=== PATIENT | female | born 1980 | race Caucasian/White ===

== ENCOUNTER → 2019-11-24 16:27 | Outpatient (CLI) | payer OTHER, SELFPAY ==
[2019-11-25 14:32] LABS: Strep Grp B PCR NEG for Grp B Strep
== END ==
PROVIDERS: Visit Provider Obstetrics & Gynecology
DX: Z34.03 Encounter for supervision of normal first pregnancy, third trimester (principal); Z3A.35 35 weeks gestation of pregnancy
CPT/HCPCS: 87653

== ENCOUNTER 2019-12-20 15:38 | Inpatient (IN) | payer OTHER, SELFPAY ==
--- NOTE | 2019-12-20 | PATH_ITS ---
[facility] Accession Number: [id number] . 01 Material submitted: . fallopian tube - BILATERAL FALLOPIAN TUBES . 01 Clinical history: . EVAL OF LABOR . 02 Diagnosis: Bilateral Fallopian Tubes, Tubal Ligation: Segments of bilateral fallopian tubes. No evidence of neoplasm. [facility] 12/24/20191714 Local . 02 Electronically signed: . Jesus Vanessa MD, PhD, Pathologist NPI- [id number] . 01 Gross description: . The specimen is received in formalin, labeled bilateral fallopian tubes and consists of two segments of fallopian tubes, measuring 0.5 cm in length x 0.5 cm in diameter and 1.2 cm in length x 0.5 cm in diameter. Fimbriae are not present. The serosa is sy-pink and smooth. Sectioning reveals a sy mucosa and a pinpoint stellate lumen, measuring up to 0.2 cm in diameter. The specimen is entirely submitted. . A1 - Smaller fallopian tube, bisected. A2 - Larger fallopian tube, quadrisected. (EA:[id number]) /[facility] 12/24/20191713 Local . 02 Microscopic: . A complete cross-section of fallopian tube is seen in each structure submitted. . 02 Pathologist provided ICD-10: Z30.2 . 02 CPT . 805620 Performed at: 01 [facility] [address] [id number] MD Jose Velasco MD Phone: [phone] Performed at: 02 [facility] [address] [place], [place] [id number] MD Irlanda Huffman MD Phone: [phone]
--- NOTE | 2019-12-20 17:25 | P.HPOB_ITS ---
OB HPI Date/Time Date of admission: 12/20/19 Date Patient Seen: 12/20/19 Time Patient Seen: 17:00 History of Present Condition Chief complaint: eval of labor : 7 Para: 3 Estimated Date of Delivery: 12/28/19 Estimated Gestational Age (weeks): 38 Narrative: Su Muro is a 39 year old @38+6 with a history of 3 prior CS, presenting in early labor. The patient reports intermittent contractions for several days, q15 this AM, and now as often as q4-5. Patient denies other abdominal pain, decreased movement, vaginal bleeding, loss of fluid, or any other complaints obstetrical or otherwise. Her was complicated by late transfer of care at 28 weeks gestation, but she denies diabetes, HTN, or any other complications. She is rh negative and recieved rhogam at 28 weeks. She has a history of three prior term CS, the first for failed induction of labor and the rest as scheduled repeat CS. She denies any other contributory emergency care attendant, medical, surgical, or family history, allergies, or medications. Indications Operative indications ( section): previous uterine surgery History of Present care: good care Obstetrical complications: none Preadmission Labs Blood type: 0 (-) negative -: Antibody screen: negative, GBS status: negative, HBsAG: negative, HIV: negative, HSV 1: negative, HSV 2: negative and RPR/VDLR: negative -: Chlamydia screen: not detected and Gonorrhea screen: not detected -: Rubella: immune and Varicella: immune Cell-free DNA: negative [facility] Medical History (Updated 12/08/19 @ 15:06 by Talisha Doherty MD) AMA (advanced maternal age) multigravida 35+ (Acute) Ectopic (Acute ~06/2016) GDM (gestational diabetes mellitus) (Acute ~07/2008) History of recurrent miscarriages (Acute) Surgical History (Updated 12/08/19 @ 15:06 by Talisha Doherty MD) History of bunionectomy of right great toe (Acute ~2006) History of primary section (Acute ~07/2008) S/P foot surgery, right (Acute ~2011) S/P repeat low transverse (Acute ~02/2011) Status post repeat low transverse section (Acute ~08/2013) [place] teeth removed (Acute ~2018) Family History (Updated 11/07/19 @ 12:29 by Allison Wang RN) Father No problems noted. Mother Breast cancer Grandfather Congestive heart failure Grandmother Congestive heart failure Grandfather Surgical complication Grandmother No known health problems Social History marital status: number of children: 3 household members: spouse and children occupational status: unemployed current occupational exposures/hazards: No special manjit needs: No Smoking Status: Never smoker second hand exposure: No alcohol intake: former (pre- : socially) substance use type: does not use Meds Home Medications and Allergies Home Medications Medication Instructions Recorded Confirmed Type calcium carbonate 200 mg calcium 200 mg PO BID 11/07/19 12/20/19 History (500 mg) chewable tablet prenat.vits,mor,vbh-coqm-qgllt 1 tab PO DAILY 11/07/19 12/20/19 History Double Electric Breast Pump #1 ea 12/08/19 12/17/19 Rx Allergies Allergy/AdvReac Type Severity Reaction Status Date / Time adhesive tape Allergy Intermediate HIVES : Verified 12/17/19 16:35 Paper Tape is better Objective Labs Result Diagrams: 12/20/19 17:00
[2019-12-20 17:26] LABS: Add Manual Diff / Slide Review NO; Basophils Absolute Auto 0 /uL (0-100); Basophils Percent Auto 0.3 % (0-2); Eosinophils Absolute Auto 200 /uL (0-450); Eosinophils Percent Auto 1.5 % (2-4); Hematocrit 32.5 % (36-46); Hemoglobin 10.8 g/dL (12.0-16.0); Lymphocytes Absolute Auto 2400 /uL (1100-4500); Lymphocytes Percent Auto 18.1 % (25-40); Mean Corpuscular HGB Conc 33.3 % (30-36); Mean Corpuscular Hemoglobin 29.3 PG (26-34); Mean Corpuscular Volume 88.1 fL (80-100); Monocytes Absolute Auto 1100 /uL (0-900); Monocytes Percent Auto 8.5 % (3-14); Neutrophils Absolute Auto 9300 /uL (1500-7000); Neutrophils Percent Auto 71.6 % (50-75); Platelet Count 242 X10^3/uL (150-400); Red Blood Cell Count 3.69 X10^6/uL (4.0-5.2); Red Cell Distribution Width 15.6 % (11.6-14.8)
[2019-12-20 17:39] LABS: COVID19 -Nasal RAPID Negative (Negative)
[2019-12-20] MEDS: CEFAZOLIN 2 GM/100 ML FROZ.PIGGY IV (17:59)
[2019-12-20] MEDS: CITRIC ACID/SODIUM CITRATE 15 ML SOLUTION 30 ML PO (18:00)
[2019-12-20] MEDS: ACETAMINOPHEN IV 1,000 MG/100 ML VIAL 400 MG IV (18:14)
--- NOTE | 2019-12-20 18:16 | SUR.OPER ---
Supine on Padded OR bed, head on pillow, safety belt at thigh, arms secured on padded arm boards at <90 degrees abduction. Bump under right buttock. Legs uncrossed with pillow under knees, gel pad to heels, tape over blanket to lower legs.
--- NOTE | 2019-12-20 18:44 | SUR.OPER ---
FHT prior to incision 124, viable baby girl born at 1829, at 8/9. Cord blood and placenta sent to OB with OB nurse.
[2019-12-20 19:24] VITALS: BP 104/66; PULSE 74; RESP 16; TEMP 36.8; O2SAT 99
[2019-12-20 19:29] VITALS: BP 112/62; PULSE 68; RESP 16; O2SAT 99
--- NOTE | 2019-12-20 19:31 | PM.OP.1 ---
Operative Date/Time/Diagnoses Date of procedure: 12/20/19 Time of procedure: 19:31 Pre-op diagnosis: early labor, history of 3 sections Post-op diagnosis: same Procedure & Clinicians Procedure: repeat section and bilateral tubal ligation Same procedure as scheduled: Yes Indications: early labor Surgeon: Yin Dennis Scenic Artist: Karishma Smith Anesthesia Type: Spinal Operative Notes Findings: normal uterus, tubes, and ovaries. baby girl in breech presentation, weight 7#10, apgars 8+9 Closure Type: primary Specimen(s): other (portions of bilateral fallopian tubes) Applied: catheter Estimated Blood Loss (mL): 500 Procedure in detail: EBL: 500ccs Fluids: 1400ccs LR UOP: 100ccs clear urine Findings: Female infant in cephalic presentation, Apgars 8 and 9, weight 7 lb 10 oz, normal uterus, tubes, ovaries. Procedures: The patient was taken to the operating room where spinal anesthesia was placed and found to be adequate. She was prepped and draped in the normal sterile fashion in the dorsal supine position with a leftward tilt. A Pfannenstiel skin incision was made with a scalpel and carried through to the underlying layer of fascia. The fascia was incised in the midline and the incision extended laterally with Edge scissors. The superior aspect of this incision was grasped with Radha clamps, elevated. and the underlying rectus muscles dissected off bluntly with no scar tissue. Attention was then turned to the inferior aspect of this incision which, in a similar fashion, was grasped, tented up with the Radha clamps, and the rectus muscles dissected off with curved Edge scissors. The rectus muscles were then in the midline using a Yin clamp and bluntly, and the peritoneum identified, tented up, and entered sharply with Metzenbaum scissors. The peritoneal incision was extended superiorly and inferiorly with good visualization of the bladder. A significant amount of scar tissue was between the rectus muscles, the peritoneum, and the bladder, but below the level necessary to complete a hysterotomy. This scar tissue was left in place due to significant involvement of the bladder. The bladder blade was inserted and the vesico uterine peritoneum identified, grasped with pickups, and entered sharply with the Metzenbaum scissors. This incision was extended laterally, and the bladder flap created digitally. The bladder blade was then reinserted and the lower uterine segment incised in transverse fashion with the scalpel. The uterine incision was bluntly extended laterally with rupture of membranes. The bladder blade was removed, and the 's feet were delivered through the hysterotomy. The 's body was delivered to the level of the scapula, and each arm and then the vertex were delivered with the usual maneuvers. One body cord and 1 loose nuchal cord were reduced during this process. The cord was clamped and cut. The nose and mouth were suctioned as needed with a bulb syringe, and the was handed off to awaiting pediatricians. The placenta was then removed manually, and the uterus was exteriorized and cleared of all clots and debris. The uterine incision was repaired with 1-0 chromic in a running, locked fashion and a 2nd layer of the same suture was used to obtain excellent hemostasis. Attention was then turned to the fallopian tubes. The left fallopian tube was elevated at the isthmus with a Danial, and a free tie of plain gut was used to tie off an approximately 1 cm knuckle of fallopian tube. A 2nd free tie was placed approximately 3 mm below the 1st, both of these were trimmed. The knuckle of fallopian tube was excised with the Metzenbaum scissors, the Endo salpinx trimmed, and the free ends cauterized with the Bovie. Good hemostasis was noted. Attention was then turned to the right fallopian tube, where the same maneuver was performed. A small tear in the mesosalpinx during this process was clamped and tied with 2 0 chromic. Good hemostasis was noted. The uterus was returned to the abdomen, and the gutters were cleared of all clots and debris. The sites of the bilateral tubal ligation were inspected and found to be hemostatic. The fascia reapproximated with 0 Vicryl in a running fashion. The subcutaneous layer was placed with 3 0 Vicryl in an interrupted fashion and the skin was closed with 4-0 biosyn in a running fashion. The patient tolerated the procedure well sponge lap and needle counts were correct x2. 2 g of Ancef were given at commencement of the case. The patient was taken to the recovery room in stable condition. Complications: none Post-operative Condition: stable Disposition: PACU Plan for aftercare: Routine postoperative care
[2019-12-20 19:35] VITALS: BP 101/60; PULSE 77; RESP 18; O2SAT 97
[2019-12-20 19:41] VITALS: BP 106/58; PULSE 78; RESP 17; TEMP 36.7; O2SAT 98
--- NOTE | 2019-12-20 20:05 | SUR.PHASEI ---
Stable PACU stay, to via bed, left with Sandra in stable condition.
[2019-12-21] MEDS: KETOROLAC 30 MG/ML VIAL IV (01:01)
[2019-12-21] MEDS: ONDANSETRON 4 MG/2 ML INJ IV (01:01)
[2019-12-21 05:21] LABS: Add Manual Diff / Slide Review NO; Basophils Absolute Auto 0 /uL (0-100); Basophils Percent Auto 0.3 % (0-2); Eosinophils Absolute Auto 100 /uL (0-450); Eosinophils Percent Auto 0.9 % (2-4); Hematocrit 28.9 % (36-46); Hemoglobin 9.5 g/dL (12.0-16.0); Lymphocytes Absolute Auto 1900 /uL (1100-4500); Lymphocytes Percent Auto 12.6 % (25-40); Mean Corpuscular HGB Conc 32.7 % (30-36); Mean Corpuscular Volume 88.7 fL (80-100); Monocytes Absolute Auto 1000 /uL (0-900); Monocytes Percent Auto 6.6 % (3-14); Neutrophils Absolute Auto 12200 /uL (1500-7000); Neutrophils Percent Auto 79.6 % (50-75); Platelet Count 197 X10^3/uL (150-400); Red Blood Cell Count 3.26 X10^6/uL (4.0-5.2); Red Cell Distribution Width 15.6 % (11.6-14.8); White Blood Cell Count 15.3 X10^3/uL (4.5-11.0)
--- NOTE | 2019-12-21 10:07 | PM.OBPN.1 ---
Subjective - OB Subjective Patient comments: pain well controlled, incisional pain and tolerating diet; no flatus present baby status: doing well and nursing well feeding status: exclusively breast feeding Narrative: This patient is POD#1 s/p 4th CS and BLTL. Date Patient Seen: 12/21/19 Time Patient Seen: 10:08 Interval history: The patient is meeting goals appropriately, with good pain control, mild lochia, tolerating PO, and ambulation. She has not yet passed flatus, and is in the middle of a voiding trial this AM. Exam Vital Signs (past 8 hours): Oxygen Delivery Method Room Air Const General: cooperative, healthy appearing and comfortable Resp Effort & Inspection: normal respiratory effort Auscultation: clear to auscultation bilaterally Cardio Rate: regular rate Rhythm: regular rhythm GI Inspection: distended (soft, tympanic) Palpation: soft and No tender Other: fundus firm, below u Skin General: no rashes or lesions noted Extrem General: normal to inspection Objective Labs Result Diagrams: 12/21/19 05:10 Labs: Laboratory Results - last 24 hr 12/20/19 12/20/19 12/20/19 17:00 17:00 17:00 WBC 13.0 H RBC 3.69 L Hgb 10.8 L Hct 32.5 L MCV 88.1 MCH 29.3 MCHC 33.3 RDW 15.6 H Plt Count 242 Neut % (Auto) 71.6 Lymph % (Auto) 18.1 L [place] % (Auto) 8.5 Eos % (Auto) 1.5 L Baso % (Auto) 0.3 Neut # (Auto) 9300 H Lymph # (Auto) 2400 [place] # (Auto) 1100 H Eos # (Auto) 200 Baso # (Auto) 0 COVID-19 PCR Negative Blood Type O Negative Antibody Screen Positive Antibody Identification Anti-D Maternal Bleed Crossmatch See Detail 12/21/19 12/21/19 05:10 05:10 WBC 15.3 H RBC 3.26 L Hgb 9.5 L Hct 28.9 L MCV 88.7 MCH 29.0 MCHC 32.7 RDW 15.6 H Plt Count 197 Neut % (Auto) 79.6 H Lymph % (Auto) 12.6 L [place] % (Auto) 6.6 Eos % (Auto) 0.9 L Baso % (Auto) 0.3 Neut # (Auto) 63819 H Lymph # (Auto) 1900 [place] # (Auto) 1000 H Eos # (Auto) 100 Baso # (Auto) 0 COVID-19 PCR Blood Type Antibody Screen Antibody Identification Maternal Bleed Negative Crossmatch Assessment & Plan Plan day: 1 plan OB: routine postop care Comments: This patient is meeting postoperative goals appropriately given her evening CS. She is encouraged to ambulate this AM, will be for straight cath and repeat VT this PM if necessary. Routine postoperative care. Time Spent With Patient Time: Total time spent is greater than 50% in coordination of care (as documented) at patient's floor/unit and/or counseling patient: Time with patient: 15-24 minutes
[2019-12-21] MEDS: SIMETHICONE 80 MG TABLET PO (19:57)
[2019-12-21] MEDS: ACETAMINOPHEN 325 MG TABLET 650 MG PO (21:04)
[2019-12-21] MEDS: OXYCODONE IR 5 MG TABLET PO (21:05)
[2019-12-22] MEDS: OXYCODONE IR 10 MG TABLET PO ×3 (00:16→08:58)
[2019-12-22 06:57] VITALS: BP 115/65
[2019-12-22] MEDS: ACETAMINOPHEN 325 MG TABLET 650 MG PO ×2 (08:57→16:20)
[2019-12-22] MEDS: DOCUSATE 250 MG CAPSULE PO (08:58)
[2019-12-22] MEDS: PRENATAL VIT,CALC/IRON/FOLIC 1 TABLET 1 TAB PO (08:59)
[2019-12-22] MEDS: SIMETHICONE 80 MG TABLET PO (12:28)
[2019-12-22] MEDS: IBUPROFEN 600 MG TABLET PO (12:28)
[2019-12-22] MEDS: RHO(D) IMMUNE GLOBULIN 1,500 UNIT SYRINGE 1500 UNIT IM (12:29)
--- NOTE | 2019-12-22 12:41 | P.PNOB_ITS ---
Exam Vital Signs (past 8 hours): - 12/22/19 06:57 Blood Pressure 115/65 Oxygen Delivery Method Room Air Objective Labs Result Diagrams: 12/21/19 05:10 Assessment & Plan Time Spent With Patient Time: Total time spent is greater than 50% in coordination of care (as documente d) at patient's floor/unit and/or counseling patient:
--- NOTE | 2019-12-22 16:19 | P.DS_ITS ---
Discharge Providers Provider Date of admission: 12/20/19 15:38 Discharge Date: 12/22/19 Primary care physician: Talisha Doherty MD Consults: 12/20/19 20:50 Consult to Platform Material Handling Supervisor Routine Comment: Discharge provider: Yin Dennis MD Summary Hospital Course Date Patient Seen: 12/22/19 Time Patient Seen: 12:30 Procedures: repeat section and bilateral tubal ligation Hospital Course: This patient presented to Labor and delivery in latent labor at 38 and 6, with contractions as often as Q to and becoming increasingly painful despite IV hydration. The decision was made to take the patient for repeat section and bilateral tubal ligation. The procedure was uncomplicated, though notable for copious scar tissue. The patient's recovery was uneventful, and she was discharged on postoperative day 2 with routine precautions. Peripartum Data Delivery Method: Section Procedures: Fourth section and bilateral tubal ligation complications: none [place] 1: Gender: Female Disposition of : home Status at Discharge Cognitive/behavioral status at discharge: oriented Functional status at discharge: independent ambulation Overall status at discharge: patient is progressing back to baseline Time Spent with Patient Time attestation: Total time spent providing and/or coordinating discharge ser vices: Objective Labs Result Diagrams: 12/21/19 05:10 Exam Vital Signs (past 8 hours): 112/62, HR 88 Oxygen Delivery Method Room Air Narrative Exam Narrative: Patient reports feeling well, good pain control, ambulating, voiding, passing flatus, mild lochia, no other complaints. Breast-feeding well. Const General: cooperative, healthy appearing, comfortable and well groomed Resp Effort & Inspection: normal respiratory effort Auscultation: clear to auscultation bilaterally Cardio Rate: regular rate Rhythm: regular rhythm GI Palpation: soft and No tender External Female Exam: normal external appearance Skin General: no rashes or lesions noted Discharge Plan Discharge Plan Patient Disposition: Home Discharge orders & Medications Prescriptions: New oxycodone 5 mg tablet 5 mg PO Q6H PRN (Reason: pain) Qty: 20 RF: 0 docusate sodium 100 mg capsule 100 mg PO BID Qty: 60 RF: 2 ibuprofen 600 mg tablet 600 mg PO Q6H PRN (Reason: pain) Qty: 14 RF: 0 Continued (DME) Double Electric Breast Pump Qty: 1 RF: 0 Discontinued KPN Tablet 1 tab PO DAILY RF: 0 calcium carbonate [Tums] 200 mg calcium (500 mg) tablet,chewable 200 mg PO BID RF: 0 Follow up/Referrals: Talisha Doherty MD [Primary Care Provider] - 1 Week (December 29, 2019 at 2:45pm with for dressing removal) Diet/Activity/Treatments Diet: Regular Activity: Nothing in the vagina for 6 weeks. Avoid lifting more than 10 lb for 6 weeks. If you have increasing bleeding, pain, fevers, chills, discharge from the incision, chest pain or trouble breathing, headaches, or any other symptoms, call the clinic or come to the emergency room. Skin/Wound/Dressing Care Report to your healthcare provider any signs of infection, such as:: chills, fever, night sweats, increased pain, unusual drainage and unusual redness Visit Report/Discharge Packet Instructions: DI for Stand Alone Forms: Discharge: Care Visit Report Forms: Patient Portal/API, Stroke Signs & Symptoms Discharge Data Primary Care Provider: Talisha Doherty
== END 2019-12-22 17:04 | disposition home or self-care (01) | DRG 785 ==
PROVIDERS: Admitting Provider Obstetrics & Gynecology; PCP Obstetrics & Gynecology; Referring Provider Obstetrics & Gynecology; Visit Provider Obstetrics & Gynecology
PROC: 10D00Z1 Extraction of Products of Conception, Low, Open Approach (ICD-10-PCS; CPT 59514; principal; 2019-12-20 17:40)
DX: O75.82 Onset (spontaneous) of labor after 37 completed weeks of gestation but before 39 completed weeks gestation, with delivery by (planned) cesarean section (principal); Z3A.38 38 weeks gestation of pregnancy; Z37.0 Single live birth; Z30.2 Encounter for sterilization; Z11.59 Encounter for screening for other viral diseases
CPT/HCPCS: 36415; 59050; 59514; 59515; 85025; 85461; 86850; 86870; 86900; 86901; 87635; G0379; J0131; J0690; J1170; J1885; J2274; J2405; J2590; J2704; J2790; J3010

== ENCOUNTER → 2020-01-13 07:25 | Outpatient (CLI) | payer OTHER, SELFPAY ==
[2020-01-13 08:28] LABS: Bacteria Urine None Seen; WBC Urine None Seen (0-5/HPF)
[2020-01-13 09:18] LABS: Appearance Urine UA CLEAR; Bilirubin Urine UA NEGATIVE (NEGATIVE); Color Urine UA YELLOW; Glucose Urine UA NEGATIVE (Negative); Ketones Urine UA NEGATIVE (NEGATIVE); Leukocyte Esterase Urine UA NEGATIVE (NEGATIVE); Nitrite Urine UA NEGATIVE (Negative); Occult Blood Urine UA 1+ (Negative); Protein Urine UA NEGATIVE (Negative); Specific Gravity Urine UA <=1.005 (1.000-1.035); Urobilinogen Urine UA 0.2 E.U./dL (0.2)
[2020-01-13 09:26] LABS: pH Urine UA 6.5 (4.5-8.0)
[2020-01-13 09:53] LABS: Culture Indicated Urine Cult Not Indicated; RBC Urine 0-1/HPF (0-5/HPF)
== END ==
PROVIDERS: Referring Provider Obstetrics & Gynecology; Visit Provider Obstetrics & Gynecology
DX: R30.0 Dysuria (principal)
CPT/HCPCS: 81001

== ENCOUNTER → 2020-02-03 10:58 | Outpatient (CLI) | payer OTHER, SELFPAY ==
[2020-02-03 12:13] LABS: Free T4, Direct Thyroxine 0.89 ng/dL (0.78-2.19)
[2020-02-03 12:27] LABS: Thyroid Stimulating Hormone 1.02 uIU/mL (0.47-4.68)
== END ==
PROVIDERS: PCP Obstetrics & Gynecology; Referring Provider Obstetrics & Gynecology; Visit Provider Obstetrics & Gynecology
DX: E04.9 Nontoxic goiter, unspecified (principal)
CPT/HCPCS: 36415; 84439; 84443

== ENCOUNTER → 2021-01-11 09:49 | Outpatient (CLI) | payer OTHER, SELFPAY ==
--- NOTE | 2021-01-11 09:51 | DI.US.S_ITS ---
PROCEDURE: US THYROID INDICATIONS: NODULE TECHNIQUE: Real-time scanning was performed of the thyroid gland, with image documentation. COMPARISON: None. FINDINGS: Right: Thyroid lobe measures 5.2 x 1.6 x 1.9 cm. Left: Thyroid lobe measures 5.2 x 1.3 x 1.5 cm, and is homogenous in echotexture. Isthmus: 3 mm thick. Nodule number: 1 Location: Right mid thyroid Size: 2.4 x 1.1 x 1.4 cm. Composition: Solid Echogenicity: Hypoechoic Shape: wider than tall. Margins: Smooth Echogenic foci: None. Total points: 4 ACR TI-RADS category: 4 IMPRESSION: There is a focal nodule seen within the right mid thyroid that measures up to 2.4 cm. By published criteria, it would be recommended that this nodule undergo fine needle aspiration. However, by history, this was nodules 5 years previously with benign results. Please correlate with known patient history. If there is strong clinical concern for this nodule, repeat ultrasound-guided fine-needle aspiration could be considered. ACR TI-RADS definitions and recommendations: TI-RADS 1 (benign): 0 points. FNA not needed. TI-RADS 2 (not suspicious): 2 points. FNA not needed. TI-RADS 3 (mildly suspicious): 3 points. * FNA if 2.5 cm or larger, follow up if 1.5 cm or larger (at 1, 3, and 5 years). TI-RADS 4 (moderately suspicious): 4-6 points. * FNA if 1.5 cm or larger, follow up if 1 cm or larger (at 1, 2, 3, and 5 years). TI-RADS 5 (highly suspicious): 7 points or more. * FNA if 1 cm or larger, follow up if 0.5 cm or larger (every year for 5 years). Dictated by: Nikolai Diallo M.D. on 01/11/2021 at 9:39 Approved by: Nikolai Diallo M.D. on 01/11/2021 at 9:41
== END ==
PROVIDERS: PCP Student in an Organized Health Care Education/Training Program; Referring Provider Student in an Organized Health Care Education/Training Program; Visit Provider Student in an Organized Health Care Education/Training Program
DX: E04.1 Nontoxic single thyroid nodule (principal)
CPT/HCPCS: 76536

== ENCOUNTER → 2022-03-09 11:20 | Outpatient (CLI) | payer OTHER, SELFPAY ==
--- NOTE | 2022-03-09 11:21 | DI.US.S_ITS ---
PROCEDURE: US THYROID INDICATIONS: f/u from 01/11/21 scan, thyroid nodule TECHNIQUE: Real-time scanning was performed of the thyroid gland, with image documentation. COMPARISON: [facility], US, US THYROID, 01/11/2021, 10:02. FINDINGS: Right: Thyroid lobe measures 0.8 x 1 6 cm, and is heterogeneous in echotexture. Left: Thyroid lobe measures 5.6.6 x 1.4 cm, and is heterogeneous in echotexture. Isthmus: 3.1 mm thick. Nodule number: 1 Location: Right mid Size: Unchanged 2.4 x 1.7 x 1.1 cm. Composition: Solid Echogenicity: Hypoechoic Shape: wider than tall. Margins: Smooth Echogenic foci: Macro calcification. Total points: 6 ACR TI-RADS category: Moderately suspicious Nodule number: 2 Location: Right inferior Size: 0.5 x 0.4 x 0.2 cm Composition: Cystic Echogenicity: Anechoic Shape: wider than tall. Margins: Smooth Echogenic foci: None Total points: 0 ACR TI-RADS category: Benign Nodule number: 3 Location: Left mid Size: 0.6 x 0.5 x 0.4 cm. Composition: Predominantly solid Echogenicity: Isoechoic Shape: wider than tall. Margins: Smooth Echogenic foci: None. Total points: 3 ACR TI-RADS category: Mildly suspicious IMPRESSION: 1. 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 Recommend continued followup ultrasound as detailed below. ACR TI-RADS definitions and recommendations: TI-RADS 1 (benign): 0 points. FNA not needed. TI-RADS 2 (not suspicious): 2 points. FNA not needed. TI-RADS 3 (mildly suspicious): 3 points. * FNA if 2.5 cm or larger, follow up if 1.5 cm or larger (at 1, 3, and 5 years). TI-RADS 4 (moderately suspicious): 4-6 points. * FNA if 1.5 cm or larger, follow up if 1 cm or larger (at 1, 2, 3, and 5 years). TI-RADS 5 (highly suspicious): 7 points or more. * FNA if 1 cm or larger, follow up if 0.5 cm or larger (every year for 5 years). Dictated by: Dustin RICHARDSON Interpreted: Aurelio Ochoa MD on 03/09/2022 at 13:13 Transcribed by: HUE on 03/09/2022 at 13:16 Approved by: Khadar Ochoa M.D. on 03/13/2022 at 12:22
== END ==
PROVIDERS: PCP Student in an Organized Health Care Education/Training Program; Referring Provider Student in an Organized Health Care Education/Training Program; Visit Provider Student in an Organized Health Care Education/Training Program
DX: E04.2 Nontoxic multinodular goiter (principal)
CPT/HCPCS: 76536

== ENCOUNTER → 2022-08-07 10:01 | Outpatient (CLI) | payer OTHER, SELFPAY ==
--- NOTE | 2022-08-07 10:01 | DI.MG.S_ITS ---
BILATERAL DIGITAL SCREENING MAMMOGRAM 3D/2D WITH CAD: 08/07/2022 CLINICAL: Routine screening. Baseline exam. No prior exams were available for comparison. Both breasts are heterogeneously dense, which may obscure small masses (category c / 51-75% glandular tissue). Current study was also evaluated with a Computer Aided Detection (CAD) system. No significant masses, calcifications, or other findings are seen in either breast. IMPRESSION: NEGATIVE There is no mammographic evidence of malignancy. A 1 year screening mammogram is recommended. Based on Tyrer-Cuzick model (a risk assessment model), the patient's lifetime risk is 25.3% and her 10 year risk is 3.5%. If a patient has an elevated risk, a more comprehensive evaluation should be considered and/or a referral to a genetic counselor. The [place] [employer], [employer], and NCCN Guidelines advise the consideration of Breast MRI as an adjunct to screening mammography in patients whose Lifetime risk to develop breast cancer is 20% or higher. This exam was interpreted at Station ID: [id number]. NOTE: For mammograms, a report in lay terms will be sent to the patient. Approximately 15% of breast malignancies will not be visualized mammographically. In the management of a palpable breast mass, a negative mammogram must not discourage biopsy of a clinically suspicious lesion. Electronically Signed By: Khadar joseph/paul:08/07/2022 12:22:02 letter sent: Normal Exam ACR BI-RADS Category 1: Negative [id number]
== END ==
PROVIDERS: PCP Student in an Organized Health Care Education/Training Program; Referring Provider Student in an Organized Health Care Education/Training Program; Visit Provider Student in an Organized Health Care Education/Training Program
DX: Z12.31 Encounter for screening mammogram for malignant neoplasm of breast (principal)
CPT/HCPCS: 77063; 77067